=== PATIENT | male | born 1980 | race Caucasian/White ===

== ENCOUNTER 2021-08-26 23:26 | Emergency (ER) | payer MEDICAID, SELFPAY ==
[~2021-08-26] VITALS: Ht 177.8 cm; Wt 86.2 kg
[2021-08-27 00:15] VITALS: BP_SYST 152
--- NOTE | 2021-08-27 00:17 | NUR ---
Swabbed patient's nares for Covid-19 testing as ordered
--- NOTE | 2021-08-27 00:20 | NUR ---
Patient came to the ER c/o cough, body aches and a fever beginning at 4 AM yesterday. Patient had a fever of 101 F, accompanied by chills. He has had numerous episodes of watery non bloody diarrhea since yesterday but has been remaining hydrated with Pedialyte. Patient reports shortness of breath. Patient was on vacation in [place] and returned 24 hours prior to onset of symptoms. No runny nose, chest pain, sore throat, vomiting or rash. Patient breating easy, espirations even unlabored. Patient ambulatory with steady gait.
--- NOTE | 2021-08-27 00:28 | NUR ---
ER in triage examining patient.
[2021-08-27] MEDS ORDERED: ACETAMINOPHEN 500 MG TABLET PO ONE (00:45)
[2021-08-27] MEDS ORDERED: ACETAMINOPHEN 500 MG TABLET ONE (00:50)
[2021-08-27 00:55] LABS: BILIRUBIN,URINE NEGATIVE (NEGATIVE); BLOOD, URINE NEGATIVE (NEGATIVE); CLARITY/URINE SLIGHTLY CLOUDY (CLEAR); COLOR,URINE YELLOW (YELLOW); GLUCOSE,URINE NEGATIVE (NEGATIVE); KETONES,URINE NEGATIVE (NEGATIVE); LEUKOCYTE ESTERASE ,URINE NEGATIVE (NEGATIVE); NITRITE, URINE NEGATIVE (NEGATIVE); PH,URINE 5.5 (5.0-8.0); PROTEIN URINE TRACE (NEGATIVE); UROBILINOGEN,URINE 0.2 (0.2-1.0)
--- NOTE | 2021-08-27 02:18 | NUR ---
Swabbed patient for influenza testing
[2021-08-27] MEDS ORDERED: D-ME118S48 PO (03:15)
[2021-08-27] MEDS ORDERED: CIPR500T5 PO (03:25)
[2021-08-27 03:30] VITALS: BP_SYST 151
--- NOTE | 2021-08-27 03:30 | NUR ---
Patient given written and verbal discharge instructions and verbalizes understanding. ER MD discussed with patient the results and treatment provided. Patient in stable condition. ID arm band removed. Rx sent to pharmacy or choice by ER MD. Patient educated on pain management and to follow up with PMD. Pain Scale 0/10. Opportunity for questions provided and answered.
== END 2021-08-27 03:30 | disposition home or self-care (01) ==
LOC: SED 23:26
DX: J06.9 Acute upper respiratory infection, unspecified (principal); Z79.899 Other long term (current) drug therapy; Z20.822 Contact with and (suspected) exposure to COVID-19
CPT/HCPCS: 36415; 81003; 99283